=== PATIENT | male | born 1965 | race Caucasian/White ===

== ENCOUNTER → 2023-01-07 00:54 | Outpatient (CLI) | payer BC, SELFPAY ==
--- NOTE | 2023-01-07 08:30 | DI.MRI_ITS ---
Exam(s) MR IAC BRAIN WO/W EXAM: MR IAC BRAIN WO/W CLINICAL HISTORY: Asymmetric sensorineural hearing loss, vertigo,H91.8X9,R42. TECHNIQUE: Multiplanar multisequence MRI of the brain and internal auditory canals was performed. CONTRAST MATERIAL: IV Contrast: 20 mL of Magnevist contrast administered. COMPARISON: MR MR BRAIN WO CONTRAST from 07/26/2022 FINDINGS: VENTRICLES AND EXTRA AXIAL SPACES: Normal in size and morphology for the patient's age. HEMORRHAGE: No acute hemorrhage. Focus of hemosiderin deposition again noted in left cerebellar hemis phere. This is associated with a venous angioma. Appearance unchanged from prior. CEREBRAL PARENCHYMA: No focus of restricted diffusion to suggest acute infarct. No space-occupying le yordy identified. Stable minimal white matter foci in the frontal regions. No abnormal enhancement.. MIDLINE SHIFT: None. BRAINSTEM/CEREBELLUM: Normal. CALVARIUM: Normal. VISUALIZED PARANASAL SINUSES/MASTOIDS: Minimal mucous retention at the floor of the left maxillary si nus. ORBITS: Unremarkable. IAC/CP ANGLE: The internal auditory canals are within normal limits. The cerebellar pontine angles ar e unremarkable. No enhancing lesions are seen. Visualized portions of the cranial nerves appear withi n normal limits. OTHER FINDINGS: None. IMPRESSION: No evidence of acoustic neuroma or other CP angle mass. Stable appearance of focus of hemosiderin associated with venous angioma in the left cerebellar hemis phere. Stable minimal white matter changes. DATA REPOSITORY:
[2023-01-07 14:03] LABS: CREATININE 0.8 mg/dL (0.70-1.30); Estimated GFR 103.22 (mL/min/1.73m2)
[2023-01-07] MEDS: Gadoterate meglumine 20 ML VIAL IVP (14:26)
[2023-01-07] MEDS: Normal Saline Flush 10 ML SYR IJ (14:27)
== END ==
PROVIDERS: PCP Physician Assistant; Visit Provider Registered Nurse Maternal Newborn
DX: D18.02 Hemangioma of intracranial structures (principal)
CPT/HCPCS: 70553; 82565

== ENCOUNTER 2023-02-09 15:05 | Outpatient (CLI) | payer BC, SELFPAY ==
[2023-02-10 09:32] LABS: Lyme Ab w Rflx to Lyme Confirm Negative (Negative)
[2023-02-12 17:43] LABS: Anaplasma phagocytophilum Negative (Negative); B. miyamotoi PCR Negative (Negative); Babesia divergens/MO-1 Negative (Negative); Babesia duncani Negative (Negative); Babesia microti Negative (Negative); Ehrlichia chaffeensis Negative (Negative); Ehrlichia ewingii/canis Negative (Negative); Ehrlichia muris eauclairensis Negative (Negative)
== END 2023-02-09 15:06 | disposition home or self-care (01) ==
LOC: LBO 15:06
PROVIDERS: Referring Provider Registered Nurse Maternal Newborn; Visit Provider Registered Nurse Maternal Newborn
DX: R42 Dizziness and giddiness; R53.83 Other fatigue
CPT/HCPCS: 36415; 87798; 86618